=== PATIENT | male | born 1980 | race African-American/Black ===

== ENCOUNTER → 2016-11-13 | Outpatient (CLI) | payer OTHER ==
--- NOTE | ~2016-11-13 | CR126 ---
[facility] A Service of [facility] RADIOLOGY TEXT RESULTS PATIENT: DELFINA SWEENEY LOCATION: [facility] : 84 UNIT #: [id number] AGE: [address]: NEETA CODY SEX: M ORDER DR: [id number] [facility] [address] [place], [place] [address] [id number] O MR#: [id number] Acc #: [id number] NAME: DELFINA SWEENEY : 1980 SEX: M STUDY DATE/TIME: 11/13/2016 15:03 UNIT: [facility] ROOM: STUDY DESCRIPTION: CR Foot Complete Min 3 View Lt Attending Physician: Fidelia Jeffers Referring Physician: Fidelia Jeffers Primary Care Physician: Unique Lopez M.D. MEDICAL IMAGING REPORT This report is preliminary unless electronic signature is present EXAM Left foot, 3 views 11/13/2016 HISTORY Left foot pain and swelling for 2 days with no known injury. FINDINGS The tarsal, metatarsal, and phalangeal elements are all anatomically normal in position and alignment. There are no articular defects. No fractures or radiopaque foreign bodies in the soft tissues are apparent. IMPRESSION Normal foot. Dictated by... Moses Zimmerman M.D. THIS IS AN ELECTRONICALLY VERIFIED REPORT Moses Zimmerman M.D. at 11/16/2016 8:14 AM ALYCIA/andreia TD: 11/14/2016 03:49 JOB #: [id number] MEDICAL IMAGING REPORT COPY
== END | disposition home or self-care (01) ==
LOC: CRAD 14:50
DX: M79.672 Pain in left foot (principal); M79.89 Other specified soft tissue disorders
CPT/HCPCS: 73630